=== PATIENT | female | born 1985 | race Two or more races ===

== ENCOUNTER 2022-01-19 22:11 | Emergency (ER) | payer OTHER ==
--- NOTE | 2022-01-19 23:20 | NUR ---
PATIENT WAS CALLED TO BE TRIAGED, BUT WAS NOT PRESENT IN THE WAITING ROOM OR OUTSIDE OF ER.
--- NOTE | 2022-01-19 23:40 | NUR ---
Patient was called to be triaged but was not present in the waiting room or outside of ER. PATIENT WAS NOT TRIAGED OR SEEN BY [facility].
== END 2022-01-19 23:40 | disposition left against medical advice (07) ==
LOC: ER 22:11
DX: Z53.21 Procedure and treatment not carried out due to patient leaving prior to being seen by health care provider (principal)